=== PATIENT | female | born 1970 | race Caucasian/White ===

== ENCOUNTER 2019-04-14 11:19 | Outpatient (CLI) | payer OTHER ==
[~2019-04-14 11:19] MED LIST: OXYC-302 PO
[2019-04-14 12:49] LABS: HCT (SEDRATE) 46.4 % (34.6-47.8)
[2019-04-14 12:50] LABS: BASOPHILS % (AUTO) 1 % (0-1); EOSINOPHILS # (AUTO) 0.18 x10^3/uL (0-0.4); EOSINOPHILS % (AUTO) 2 % (1-7); LYMPHOCYTES # (AUTO) 3.22 x10^3/uL (1-3.4); LYMPHOCYTES % (AUTO) 35 % (22-44); MD NO; MEAN CORPUSCULAR HEMOGLOBIN 30.7 pg (27.0-34.8); MEAN CORPUSCULAR HGB CONC 32.7 g/dL (32.4-35.8); MEAN CORPUSCULAR VOLUME 93.7 fL (80-100); MEAN PLATELET VOLUME 8.2 fL (7.4-10.4); MONOCYTES # (AUTO) 0.56 x10^3/uL (0.2-0.8); MONOCYTES % (AUTO) 6 % (2-9); NEUTROPHILS % (AUTO) 56 % (42-75); PLATELET COUNT 324 x10^3/uL (130-400); RED CELL DISTRIBUTION WIDTH 12.6 % (9.6-15.2)
[2019-04-14 12:59] LABS: ALANINE AMINOTRANSFERASE 35 U/L (12-78); ALBUMIN 4.2 g/dL (3.4-5.0); ANION GAP 5 mmol/L (5-15); CALCIUM 9.5 mg/dL (8.5-10.1); CHLORIDE 105 mmol/L (98-107); CREATININE 0.95 mg/dL (0.55-1.02); INTERNATIONAL NORMALIZED RATIO 0.96 (0.93-1.1); PROTHROMBIN TIME 10.1 Seconds (9.6-11.5)
[2019-04-14 13:02] LABS: ALKALINE PHOSPHATASE 60 U/L (45-117); BILIRUBIN,TOTAL 0.5 mg/dL (0.2-1.0); TOTAL PROTEIN 7.7 g/dL (6.4-8.2)
[2019-04-14 13:21] LABS: HEMOGLOBIN A1C 5.1 % (4.2-6.3)
[2019-04-14] MEDS ORDERED: SUMA100T3 PO (13:45)
[2019-04-14] MEDS ORDERED: TRAM50TA2 PO (13:45)
[2019-04-14] MEDS ORDERED: NAPR-816 PO (13:45)
[2019-04-14] MEDS ORDERED: ACET-1600 PO (13:45)
== END 2019-04-14 23:59 | disposition home or self-care (01) ==
LOC: STAR 11:19
PROVIDERS: ATTEND Orthopaedic Surgery Orthopaedic Surgery of the Spine
DX: Z01.818 Encounter for other preprocedural examination (principal); M16.12 Unilateral primary osteoarthritis, left hip; Z87.891 Personal history of nicotine dependence; Z80.9 Family history of malignant neoplasm, unspecified; Z82.5 Family history of asthma and other chronic lower respiratory diseases
CPT/HCPCS: 36415; 71046; 80053; 83036; 85025; 85610; 85651; 85730; 87081; 93005

== ENCOUNTER 2019-08-30 18:11 | Emergency (ER) | payer OTHER ==
[~2019-08-30] VITALS: Ht 162.6 cm; Wt 85.0 kg
[~2019-08-30 18:11] MED LIST changes: +ACET-1600 PO; +ASPI325T17 PO; +ASPI81TA45 PO; +CEPH-368 PO; +DIAZ5TAB4 PO; +IBUP-1222 PO; +NAPR-816 PO; +OXYC5CAP2 PO; +SUMA100T3 PO; +TRAM50TA2 PO
[2019-08-30 18:18] VITALS: BP 129/81
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
[2019-08-30] MEDS ORDERED: HYDROmorphone 1 MG/ML, 1ML INJ ONE (18:27)
[2019-08-30] MEDS ORDERED: HYDROmorphone 2 MG/ML, 1ML IVPush ONE (18:30)
--- NOTE | 2019-08-30 18:30 | NUR ---
PT MEDICATED PER EMAR. PT TOLERATED WELL.
--- NOTE | 2019-08-30 18:30 | NUR ---
PT TO XRAY AT THIS TIME.
--- NOTE | 2019-08-30 18:42 | NUR ---
PT BACK TO ROOM FROM XRAY AT THIS TIME.
--- NOTE | 2019-08-30 18:49 | NUR ---
REPORT GIVEN TO MERCEDES MORRISON.
[2019-08-30] MEDS ORDERED: PROPOFOL 10 MG/ML, 20ML IVPush ONE (19:00)
[2019-08-30] MEDS ORDERED: PROPOFOL 10 MG/ML, 20ML ONE ×2 (19:20→19:21)
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
--- NOTE | 2019-08-30 19:27 | NUR ---
PT ALERT AND ANSWERING QUESTIONS APPROPRIATELY, MONITORS REMAIN IN PLACE, VSS
--- NOTE | 2019-08-30 19:49 | NUR ---
PT RESTING CALMLY AND ON CELL PHONE, VSS
== END 2019-08-30 20:30 | disposition home or self-care (01) ==
LOC: ED 18:50
DX: S73.005A Unspecified dislocation of left hip, initial encounter (principal); E78.5 Hyperlipidemia, unspecified; Z87.891 Personal history of nicotine dependence; W01.0XXA Fall on same level from slipping, tripping and stumbling without subsequent striking against object, initial encounter; Y93.89 Activity, other specified; Y92.098 Other place in other non-institutional residence as the place of occurrence of the external cause; Y99.8 Other external cause status
CPT/HCPCS: 27265; 73501; 73502; 96374; 99285; J1170; J2704

== ENCOUNTER 2019-09-06 14:01 | Emergency (ER) | payer OTHER ==
[~2019-09-06] VITALS: Ht 162.6 cm; Wt 87.7 kg
[2019-09-06 14:05] VITALS: BP 132/81
[2019-09-06] MEDS ORDERED: HYDROmorphone 1 MG/ML, 1ML INJ ONE (14:10)
[2019-09-06] MEDS ORDERED: PROPOFOL 10 MG/ML, 20ML ONE (14:11)
[2019-09-06] MEDS ORDERED: KETAMINE 10 MG/ML, 20ML ONE (14:18)
[2019-09-06] MEDS ORDERED: KETAMINE 100 MG/ML, 5ML IV ONE (14:30)
[2019-09-06] MEDS ORDERED: HYDROmorphone 2 MG/ML, 1ML IVPush ONE (14:30)
[2019-09-06] MEDS ORDERED: PROPOFOL 10 MG/ML, 20ML IVPush ONE (14:30)
[2019-09-06] MEDS ORDERED: DIAZEPAM 5 MG/ML, 2ML ONE (15:07)
--- NOTE | 2019-09-06 15:14 | NUR ---
L HIP REDUCED BY DR. REBOLLEDO USING PROCEDURAL SEDATION.
[2019-09-06] MEDS ORDERED: DIAZEPAM 5 MG/ML, 2ML IVPush ONE (15:30)
[2019-09-06] MEDS ORDERED: KETOROLAC 30 MG/1 ML ONE (15:40)
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
--- NOTE | 2019-09-06 15:58 | NUR ---
[facility] BEDSIDE-HAND OFF REPORT TO TAMIKO CASTRO.
[2019-09-06] MEDS ORDERED: KETOROLAC 30 MG/1 ML IVPush ONE (16:00)
--- NOTE | 2019-09-06 16:09 | NUR ---
PT'S HOB ELEVATED SLIGHTLY WITH PT EXPERIENCING LEFT HIP PAIN WITH ANY MOVEMENT. PT HAS CALLED FOR RIDE WHILE AWAITING DISCHARGE.
== END 2019-09-06 17:06 | disposition home or self-care (01) ==
LOC: ED 15:14
DX: S73.035A Other anterior dislocation of left hip, initial encounter (principal); E78.5 Hyperlipidemia, unspecified; X58.XXXA Exposure to other specified factors, initial encounter; Y93.01 Activity, walking, marching and hiking; Y92.098 Other place in other non-institutional residence as the place of occurrence of the external cause; Y99.8 Other external cause status
CPT/HCPCS: 27265; 73501; 96374; 96375; 99284; J1170; J1885; J2704; J3360

== ENCOUNTER → 2019-09-29 | Outpatient (CLI) | payer OTHER ==
[~2019-09-29] MED LIST changes: +MUPI15CR9 NS; +OXYC10TA6 PO; +naproxen PO
[2019-09-29 15:03] LABS: BASOPHILS # (AUTO) 0.07 x10^3/uL (0-0.1); BASOPHILS % (AUTO) 1 % (0-1); EOSINOPHILS # (AUTO) 0.11 x10^3/uL (0-0.4); EOSINOPHILS % (AUTO) 1 % (1-7); LYMPHOCYTES # (AUTO) 2.95 x10^3/uL (1-3.4); LYMPHOCYTES % (AUTO) 27 % (22-44); MD NO; MEAN CORPUSCULAR HEMOGLOBIN 30.3 pg (27.0-34.8); MEAN CORPUSCULAR HGB CONC 33.7 g/dL (32.4-35.8); MEAN CORPUSCULAR VOLUME 90.1 fL (80-100); MEAN PLATELET VOLUME 8.2 fL (7.4-10.4); MONOCYTES # (AUTO) 0.35 x10^3/uL (0.2-0.8); MONOCYTES % (AUTO) 3 % (2-9); NEUTROPHILS # (AUTO) 7.53 x10^3/uL (1.8-6.8); NEUTROPHILS % (AUTO) 68 % (42-75); PLATELET COUNT 340 x10^3/uL (130-400); RED BLOOD COUNT 5.42 x10^6/uL (3.82-5.3); RED CELL DISTRIBUTION WIDTH 13.8 % (9.6-15.2)
[2019-09-29 15:13] LABS: ALANINE AMINOTRANSFERASE 18 U/L (12-78); ALBUMIN 4.2 g/dL (3.4-5.0); ANION GAP 8 mmol/L (5-15); CALCIUM 9.1 mg/dL (8.5-10.1); CHLORIDE 107 mmol/L (98-107); CREATININE 1.01 mg/dL (0.55-1.02)
[2019-09-29 15:15] LABS: ALKALINE PHOSPHATASE 70 U/L (45-117); BILIRUBIN,TOTAL 0.8 mg/dL (0.2-1.0)
[2019-09-29 15:17] LABS: HCT (SEDRATE) 48.9 % (34.6-47.8)
[2019-09-29 15:27] LABS: PROTHROMBIN TIME 10.6 Seconds (9.6-11.5)
== END | disposition home or self-care (01) ==
LOC: STAR 13:27
PROVIDERS: ATTEND Orthopaedic Surgery Orthopaedic Surgery of the Spine
DX: Z01.818 Encounter for other preprocedural examination (principal); Z11.59 Encounter for screening for other viral diseases; T84.021S Dislocation of internal left hip prosthesis, sequela
CPT/HCPCS: 36415; 80053; 83036; 85025; 85610; 85651; 85730; 87081; 93005; U0001

== ENCOUNTER → 2020-08-16 | Outpatient (CLI) | payer OTHER ==
[~2020-08-16] MED LIST changes: +ASPI-1026 PO; +Amberen PO; +CYCL10TA2 PO; +METH750T87 PO; +NAPR-685 PO; +ONDA8TAB9 PO; -OXYC-302 PO; +OXYC10TA72 PO; +OXYC1TAB14 PO; +PSYL660P18 PO
[2020-08-16 09:27] LABS: BASOPHILS % (AUTO) 1 % (0-1); EOSINOPHILS % (AUTO) 1 % (1-7); LYMPHOCYTES % (AUTO) 33 % (22-44); MD NO; MEAN CORPUSCULAR HEMOGLOBIN 30.5 pg (27.0-34.8); MEAN CORPUSCULAR HGB CONC 33.7 g/dL (32.4-35.8); MEAN PLATELET VOLUME 8.1 fL (7.4-10.4); MONOCYTES % (AUTO) 5 % (2-9); NEUTROPHILS % (AUTO) 60 % (42-75); PLATELET COUNT 333 x10^3/uL (130-400); RED BLOOD COUNT 5.06 x10^6/uL (3.82-5.3); RED CELL DISTRIBUTION WIDTH 13.3 % (9.6-15.2)
[2020-08-16 09:32] LABS: HCT (SEDRATE) 45.8 % (34.6-47.8)
[2020-08-16 09:37] LABS: INTERNATIONAL NORMALIZED RATIO 0.96 (0.93-1.1); PROTHROMBIN TIME 10.3 Seconds (9.6-11.5)
[2020-08-16 09:39] LABS: CHLORIDE 102 mmol/L (98-107)
[2020-08-16 09:46] LABS: ALANINE AMINOTRANSFERASE 25 U/L (12-78); ALBUMIN 4.4 g/dL (3.4-5.0); ALKALINE PHOSPHATASE 69 U/L (45-117); ANION GAP 4 mmol/L (5-15); BILIRUBIN,TOTAL 0.5 mg/dL (0.2-1.0); CALCIUM 9.5 mg/dL (8.5-10.1); CREATININE 1.02 mg/dL (0.55-1.02); TOTAL PROTEIN 8.2 g/dL (6.4-8.2)
== END | disposition home or self-care (01) ==
LOC: STAR 07:59
PROVIDERS: ATTEND Orthopaedic Surgery Orthopaedic Surgery of the Spine
DX: Z01.812 Encounter for preprocedural laboratory examination (principal); Z20.822 Contact with and (suspected) exposure to COVID-19; R94.31 Abnormal electrocardiogram [ECG] [EKG]
CPT/HCPCS: 36415; 71046; 80053; 83036; 85025; 85610; 85651; 85730; 87081; 93005; U0003

== ENCOUNTER 2020-08-20 05:59 | Inpatient (IN) | payer OTHER ==
[~2020-08-20] VITALS: Ht 162.6 cm; Wt 80.3 kg
[2020-08-20] MEDS ORDERED: VANCOMYCIN PMX 1GM/200ML 200 ML IV ONE (06:30)
[2020-08-20] MEDS ORDERED: LACTATED RINGERS 1,000 ML IV SCH (06:30)
[2020-08-20] MEDS ORDERED: TRANEXAMIC ACID 100 MG/ML, 10ML ONE (07:21)
[2020-08-20] MEDS ORDERED: MIDAZOLAM 1 MG/ML, 2ML ONE (07:48)
[2020-08-20] MEDS ORDERED: FENTANYL PF 250 MCG/5ML ONE ×2 (07:48→09:26)
[2020-08-20] MEDS ORDERED: hydrALAzine 20 MG/ML, 1ML IV PRN (08:00)
[2020-08-20] MEDS ORDERED: FENTANYL PF 100 MCG/2ML IV PRN (08:00)
[2020-08-20] MEDS ORDERED: ACETAMINOPHEN 325 MG TABLET PO PRN (08:00)
[2020-08-20] MEDS ORDERED: MEPERIDINE/PF 25MG/0.5ML IVPush PRN (08:00)
[2020-08-20] MEDS ORDERED: PROMETHAZINE 25 MG/ML, 1ML IVPush PRN (08:00)
[2020-08-20] MEDS ORDERED: OXYcodone 5 MG/5 ML ORAL.SOL UDC PO PRN (08:00)
[2020-08-20] MEDS ORDERED: HALOPERIDOL 5 MG/ML IV PRN (08:00)
[2020-08-20] MEDS ORDERED: LABETALOL 5MG/ML, 20ML IV PRN (08:00)
[2020-08-20] MEDS ORDERED: SCOPOLAMINE 1MG PATCH TD ONE (08:02)
[2020-08-20] MEDS ORDERED: CLINDAMYCIN 150 MG/ML, 6ML ONE (08:26)
[2020-08-20] MEDS ORDERED: NEOSTIGMINE 1 MG/ML, 10ML ONE (09:18)
[2020-08-20] MEDS ORDERED: DEXAMETHASONE 4 MG/ML, 1ML ONE (09:18)
[2020-08-20] MEDS ORDERED: ONDANSETRON 2MG/ML, 2ML ONE (09:18)
[2020-08-20] MEDS ORDERED: PROPOFOL 10 MG/ML, 20ML ONE (09:18)
[2020-08-20] MEDS ORDERED: CEFAZOLIN 1,000 MG ONE (09:18)
[2020-08-20] MEDS ORDERED: GLYCOPYRROLATE 0.2MG/1ML, 5ML ONE (09:18)
[2020-08-20] MEDS ORDERED: ROCURONIUM 10MG/ML,5ML ONE (09:18)
[2020-08-20] MEDS ORDERED: VANCOMYCIN 1,000 MG ONE (10:08)
[2020-08-20] MEDS ORDERED: BISACODYL 10 MG SUPP PR PRN (11:00)
[2020-08-20] MEDS ORDERED: MAGNESIUM HYDROXIDE 8%, 30ML UDC PO PRN (11:00)
[2020-08-20] MEDS ORDERED: SENNA/DOCUSATE TABLET PO PRN (11:00)
[2020-08-20] MEDS ORDERED: DEXAMETHASONE 4 MG/ML, 5ML IVPush PRN (11:00)
[2020-08-20] MEDS ORDERED: DIAZEPAM 5 MG TABLET PO PRN (11:00)
[2020-08-20] MEDS ORDERED: DIPHENHYDRAMINE 50 MG/ML, 1ML IM PRN (11:00)
[2020-08-20] MEDS ORDERED: DIPHENHYDRAMINE 50 MG/ML, 1ML IVPush PRN (11:00)
[2020-08-20] MEDS ORDERED: morphine SULFATE 10 MG/ML, 1ML IVPush PRN (11:00)
[2020-08-20] MEDS ORDERED: ONDANSETRON 2MG/ML, 2ML IV PRN (11:00)
[2020-08-20] MEDS ORDERED: PROMETHAZINE 25 MG/ML, 1ML IM PRN (11:00)
[2020-08-20] MEDS ORDERED: LORazepam 1MG TABLET PO PRN (11:00)
[2020-08-20] MEDS ORDERED: ACETAMINOPHEN 500 MG TABLET PO PRN (11:00)
[2020-08-20] MEDS ORDERED: SODIUM CHLORIDE 0.9% 1,000 ML IV PRN (11:00)
[2020-08-20] MEDS ORDERED: LABETALOL 5MG/ML, 20ML IVPush PRN (11:00)
[2020-08-20] MEDS ORDERED: KETOROLAC 30 MG/1 ML IVPush ONE (11:00)
[2020-08-20] MEDS ORDERED: OXYcodone IR 5MG TABLET PO PRN ×2 (11:00)
[2020-08-20] MEDS ORDERED: KETOROLAC 30 MG/1 ML IVPush PRN (11:00)
[2020-08-20] MEDS ORDERED: DIPHENHYDRAMINE 50 MG CAPSULE PO PRN (11:00)
[2020-08-20] MEDS ORDERED: ACETAMINOPHEN 650 MG/20.3 ML UDC ONE (11:02)
[2020-08-20] MEDS ORDERED: OXYcodone 5 MG/5 ML ORAL.SOL UDC ONE (11:02)
[2020-08-20] MEDS ORDERED: HYDROmorphone 2 MG/ML, 1ML ONE (11:03)
[2020-08-20] MEDS: HYDROmorphone 1 MG/ML, 1ML INJ IVPush PRN ×2 (11:06→11:18)
[2020-08-20] MEDS ORDERED: KETOROLAC 30 MG/1 ML ONE (11:32)
[2020-08-20] MEDS ORDERED: DIPHENHYDRAMINE 50 MG/ML, 1ML ONE (11:37)
[2020-08-20] MEDS: METHOCARBAMOL 1,000 MG in DEXTROSE 5% 100 ML IV SCH ×2 (11:50→20:09)
[2020-08-20] MEDS ORDERED: CLINDAMYCIN PMX 900MG/50ML 50 ML IV ONE (13:00)
[2020-08-20 14:00] VITALS: BP 116/77
[2020-08-20] MEDS: HYDROcodone/APAP 5/325 TABLET PO PRN ×2 (15:37→20:06)
[2020-08-20] MEDS: NS + 20MEQ KCL 1,000 ML IV SCH (15:46)
[2020-08-20] MEDS ORDERED: NAPROXEN 500 MG TABLET PO SCH (16:00)
[2020-08-20] MEDS ORDERED: DICLOFENAC SODIUM 75 MG TABLET.DR PO SCH (17:00)
[2020-08-20] MEDS: METHOCARBAMOL 750 MG TABLET PO SCH (19:10)
[2020-08-20 20:30] VITALS: BP 109/62
[2020-08-20] MEDS ORDERED: ZOLPIDEM 5MG TABLET PO PRN (21:00)
[2020-08-20] MEDS: ASPIRIN 325 MG TABLET PO SCH (23:16)
[2020-08-21 00:05] VITALS: BP 97/63
[2020-08-21] MEDS: HYDROcodone/APAP 5/325 TABLET PO PRN ×2 (00:31→06:19)
[2020-08-21] MEDS: NS + 20MEQ KCL 1,000 ML IV SCH (01:41)
[2020-08-21] MEDS: METHOCARBAMOL 750 MG TABLET PO SCH (03:30)
[2020-08-21] MEDS: METHOCARBAMOL 1,000 MG in DEXTROSE 5% 100 ML IV SCH (04:04)
[2020-08-21 05:02] VITALS: BP 95/63
[2020-08-21 05:35] LABS: BASOPHILS % (AUTO) 0 % (0-1); EOSINOPHILS % (AUTO) 0 % (1-7); LYMPHOCYTES % (AUTO) 11 % (22-44); MEAN CORPUSCULAR HEMOGLOBIN 30.6 pg (27.0-34.8); MEAN CORPUSCULAR HGB CONC 33.7 g/dL (32.4-35.8); MEAN PLATELET VOLUME 7.9 fL (7.4-10.4); MONOCYTES % (AUTO) 4 % (2-9); NEUTROPHILS % (AUTO) 84 % (42-75); PLATELET COUNT 229 x10^3/uL (130-400); RED BLOOD COUNT 3.99 x10^6/uL (3.82-5.3); RED CELL DISTRIBUTION WIDTH 12.8 % (9.6-15.2)
[2020-08-21 06:42] LABS: MD NO
[2020-08-21 07:20] VITALS: BP 94/62
[2020-08-21] MEDS: ASPIRIN 325 MG TABLET PO SCH (08:32)
[2020-08-21] MEDS ORDERED: PSYLLIUM PACKET PO SCH (09:00)
[2020-08-21] MEDS ORDERED: CALCIUM CARBONATE 500 MG TAB.CHEW PO PRN (11:00)
[2020-08-21] MEDS ORDERED: HYDROcodone/APAP 5/325 TABLET PO PRN (11:30)
[2020-08-21 11:52] VITALS: BP 98/66
[2020-08-21] MEDS ORDERED: HYDR-3248 PO (13:05)
[2020-08-21] MEDS ORDERED: ASPI-1026 PO (13:06)
[2020-08-25] MEDS ORDERED: DICLOFENAC SODIUM 75 MG TABLET.DR PO SCH (17:00)
== END 2020-08-21 13:26 | disposition home or self-care (01) | DRG 468 ==
LOC: ORIP 05:59 → 4NE 12:42 → DCLOUNGE 08-21 13:21
PROVIDERS: ADMIT Orthopaedic Surgery Orthopaedic Surgery of the Spine; ATTEND Orthopaedic Surgery Orthopaedic Surgery of the Spine
PROC: 0SPB0JZ Removal of Synthetic Substitute from Left Hip Joint, Open Approach (ICD-10-PCS; 2020-08-20)
PROC: 0SRB04A Replacement of Left Hip Joint with Ceramic on Polyethylene Synthetic Substitute, Uncemented, Open Approach (ICD-10-PCS; principal; 2020-08-20 08:00)
DX: T84.091A Other mechanical complication of internal left hip prosthesis, initial encounter (principal); W18.2XXA Fall in (into) shower or empty bathtub, initial encounter; Y79.2 Prosthetic and other implants, materials and accessory orthopedic devices associated with adverse incidents; T84.021A Dislocation of internal left hip prosthesis, initial encounter; M62.838 Other muscle spasm; Y93.E1 Activity, personal bathing and showering
CPT/HCPCS: 36415; 73502; S0077; 85025; 86850; 86900; G0378; J0690; J1100; J1170; J1885; J2250; J2405; J2704; J2710; J3010; J3370; J3480; C1776; J1200; J2800; J7120